=== PATIENT | female | born 1965 | race Caucasian/White ===

== ENCOUNTER 2017-08-10 05:39 | Day surgery (SDC) | payer BC | END 2017-08-10 10:45 | disposition home or self-care (01) | LOC: D.OPS 05:39 | DX: R22.31 Localized swelling, mass and lump, right upper limb (principal); M53.3 Sacrococcygeal disorders, not elsewhere classified; M70.61 Trochanteric bursitis, right hip; M70.62 Trochanteric bursitis, left hip; M25.561 Pain in right knee; M25.562 Pain in left knee; K44.9 Diaphragmatic hernia without obstruction or gangrene; K21.9 Gastro-esophageal reflux disease without esophagitis; Z01.812 Encounter for preprocedural laboratory examination ==

== ENCOUNTER 2017-08-12 07:57 | Emergency (ER) | payer BC | END 2017-08-12 08:39 | disposition home or self-care (01) | LOC: D.ER 07:57 | DX: L76.22 Postprocedural hemorrhage of skin and subcutaneous tissue following other procedure (principal); G89.18 Other acute postprocedural pain; K21.9 Gastro-esophageal reflux disease without esophagitis ==

== ENCOUNTER 2017-09-21 10:43 | Day surgery (SDC) | payer BC ==
[~2017-09-21 10:43] MED LIST: CLARITIN 10 MG10 MG PO; CROMOLYN SOD40 MG/ML NS; DEPAKOTE250 MG PO; DEPAKOTE500 MG PO; HYDROCODONE-APA1 TAB PO; MAXALT MLT10 MG/TAB PO; OCELLA 3 MG-0.1 EACH PO; PRILOSEC20 MG PO; TOPAMAX200 MG PO; WELCHOL625 MG PO; ZANTAC150 MG PO; [UNRECOGNIZED DRUG - OTHER]
[2017-09-21 11:46] LABS: HCG URINE NEGATIVE (NEGATIVE)
[2017-09-21] MEDS ORDERED: ULTRAM50 MG PO (12:06)
[2017-09-21 12:08] VITALS: BP 125/71; BMI 23.0
[2017-09-21 12:26] LABS: HEMOGLOBIN 11.1 g/dL (12-16); MCH 30.1 pg (26.0-34.0); MCHC 31.7 g/dL (31.0-37.0); MCV 94.9 fL (80.0-100.0); MEAN PLATELET VOLUME 10.9 fL (7.4-10.4); RBC 3.69 10x6/uL (4.00-5.40); RDW 14.3 % (11.5-14.5); WBC 9.1 10x3/uL (4.8-10.8)
[2017-09-21] MEDS ORDERED: HYDROCODONE-APA1 TAB PO (14:14)
--- NOTE | 2017-09-21 14:27 | NUR ---
THE PATIENT REQUESTED A SHORT STAY IN RECOVERY SO SHE COULD RETURN TO OUTPATIENT TO EAT
--- NOTE | 2017-09-21 14:33 | NUR ---
DR CARNEY PLACED EDMUND IN HOLDING AREA BEFORE COMING BACK FOR PROCEDURE, CHANDRAKANT.
--- NOTE | 2017-09-21 17:31 | NUR ---
1530 IV DC PER JULIET
--- NOTE | 2017-09-25 14:00 | OP ---
PATIENT NAME: TERESA BOYER MEDICAL RECORD: [id number] :69 LOCATION:D.OPS ADMISSION DATE: SURGEON: MAYE TATE MD DATE OF OPERATION: 09/21/2017 PREOPERATIVE DIAGNOSIS: Recurrent nodule dorsal aspect of the right hand. POSTOPERATIVE DIAGNOSIS: Recurrent nodule dorsal aspect of the right hand. PROCEDURE: Elliptical incision of the subcutaneous nodule including full dermis excision. SURGEON: Maye Tate MD ANESTHESIA: General. INTRAOPERATIVE COMPLICATIONS: None. SUMMARY OF PATHOLOGIC FINDINGS: Unlike the last nodule that was excised, this was actually more likely hypertrophic scar tissue in the dermis itself. For this reason, an elliptical incision was undertaken at this time. OPERATIVE SUMMARY IN DETAIL: After obtaining the appropriate preoperative orthopedic surgery consent as well as anesthetic consultation, evaluation and clearance, the patient was brought to the operating room and placed on the operating table in supine position. After general laryngeal mask was administered, tourniquet was placed about the proximal aspect of the left upper extremity. Right upper extremity was then prepped and draped in routine sterile fashion. The arm was elevated and exsanguinated, tourniquet inflated to 250 mmHg. Very small elliptical incision was made about this 2 x 2 mm nodularity in the dermis. This was excised in its entirety, full thickness wound was irrigated and closed with 4-0 Prolene in a standard interrupted fashion. The area was locally infiltrated with 0.25% Marcaine plain. Sterile dressings were applied. Tourniquet was deflated. The patient was awakened and taken to recovery in stable condition. All final needle and sponge counts were correct. TRANSINT:[id number] Voice Confirmation ID: [id number] DOCUMENT ID: [id number] MAYE TATE MD at 1400 CC: [id number] DICTATION DATE: 09/22/17 1113 INVESTMENT ADVISOR: 09/22/17 1158 [facility] 09/21/[address] [id number]
== END 2017-09-21 16:00 | disposition home or self-care (01) ==
LOC: D.OPS 10:43 → D.PAN 13:00 → D.OPS 14:00 → D.PAN 14:35 → D.OPS 16:00
PROVIDERS: Anesthesiology; Orthopaedic Surgery
DX: R22.31 Localized swelling, mass and lump, right upper limb (principal); K44.9 Diaphragmatic hernia without obstruction or gangrene; K21.9 Gastro-esophageal reflux disease without esophagitis; Z01.812 Encounter for preprocedural laboratory examination; M79.641 Pain in right hand; M25.551 Pain in right hip; M25.552 Pain in left hip; M70.61 Trochanteric bursitis, right hip; M70.62 Trochanteric bursitis, left hip; M53.3 Sacrococcygeal disorders, not elsewhere classified

== ENCOUNTER 2019-09-05 05:30 | Day surgery (SDC) | payer BC ==
[2019-09-04 09:07] LABS: HEMATOCRIT 37.3 % (36.0-48.0); HEMOGLOBIN 11.8 g/dL (12-16); MCH 28.6 pg (26.0-34.0); MCHC 31.6 g/dL (31.0-37.0); MCV 90.5 fL (80.0-100.0); MEAN PLATELET VOLUME 10.1 fL (7.4-10.4); RBC 4.12 10x6/uL (4.00-5.40); RDW 13.8 % (11.5-14.5); WBC 6.5 10x3/uL (4.8-10.8)
[~2019-09-05] VITALS: Ht 160 cm; Wt 55.3 kg
[~2019-09-05 05:30] MED LIST changes: +EMGALITY SQ; +ULTRAM50 MG PO
[2019-09-05] MEDS ORDERED: ZANAFLEX4 MG PO (06:01)
[2019-09-05] MEDS ORDERED: OMEPRAZOLE CAP 20M (06:02)
[2019-09-05] MEDS ORDERED: IBUPROFEN800 MG (06:02)
[2019-09-05] MEDS ORDERED: AMBIEN5 MG PO (06:03)
[2019-09-05 06:15] VITALS: BP 133/90; Ht 160 cm; Wt 55.3 kg
[2019-09-05] MEDS ORDERED: PERCOCET 10-321 EAC1 PO (07:41)
--- NOTE | 2019-09-05 09:27 | NUR ---
DISCHARGED HOME VIA WHEELCHAIR TO PRIVATE VEHICLE WITH FRIEND
--- NOTE | 2019-09-09 10:50 | OP ---
PATIENT NAME: TERESA BOYER MEDICAL RECORD: [id number] :69 LOCATION:D.OPS ADMISSION DATE: SURGEON: MAYE TATE MD DATE OF OPERATION: 09/05/2019 PREOPERATIVE DIAGNOSIS: Right carpal tunnel syndrome, right trigger thumb. POSTOPERATIVE DIAGNOSIS: Right carpal tunnel syndrome, right trigger thumb. PROCEDURES: 1. Right carpal tunnel release. 2. Right trigger thumb release. SURGEON: Maye Tate MD BUILDING SERVICES ENGINEER: HUSSEIN Mari INTRAOPERATIVE COMPLICATIONS: None. SUMMARY OF PATHOLOGIC FINDINGS: The patient had a tight transverse carpal ligament consistent with preoperative diagnosis of carpal tunnel syndrome. Furthermore, the patient had a very tight A1 dora at the thumb base. OPERATIVE SUMMARY IN DETAIL: After obtaining the appropriate preoperative orthopedic surgery consent as well as anesthetic consultation, evaluation, and clearance, the patient was brought to the operating room and placed on the operating table in supine position. After adequate general laryngeal mask airway was administered, tourniquet was placed on the proximal aspect of the right upper extremity. Right upper extremity was then prepped and draped in routine sterile fashion. The arm was elevated and exsanguinated, tourniquet was inflated to 250 mmHg. Attention was first turned to the trigger thumb. Incision was made at the base of trigger thumb, taken down to the level of the A1 dora. The digital nerves were identified and retracted. The A1 dora was incised in its entirety. The patient had a very thick A1 dora. The flexor tendon was then identified and had some attritional changes, but no full thickness tearing. This wound was then irrigated. Attention was turned to the carpal tunnel. Incision was made in line with the fourth metacarpal, taken down to the level of the distal aspect of the transverse carpal ligament. A small incision was made here to identify the median nerve. A [place] elevator was then placed and then the [employer] light knife was utilized to complete the entire transverse ligament incision under direct visualization while protecting the median nerve. Again, both areas were irrigated and closed by HUSSEIN Mari. Prior to letting the tourniquet down, the area was locally infiltrated with 0.25% Marcaine plain. Sterile dressings were applied. Tourniquet was deflated. The patient was awakened and taken to the recovery room in stable condition. All final needle and sponge counts were correct. TRANSINT:[id number] Voice Confirmation ID: [id number] DOCUMENT ID: [id number] OPERATIVE REPORT [id number] TERESA BOYER MD, MAYE OWUSU at 1050 CC: [id number] DICTATION DATE: 09/06/19 1050 [facility] REGISTERED NURSE: 09/06/19 1112 [facility] [place] 09/05/19 [facility] [address] [place] [address]
== END 2019-09-05 09:27 | disposition home or self-care (01) ==
LOC: D.OPS 05:30 → D.PAN 07:30 → D.OPS 07:30
PROVIDERS: Anesthesiology; ATTEND Orthopaedic Surgery
DX: G56.01 Carpal tunnel syndrome, right upper limb (principal); M65.311 Trigger thumb, right thumb

== ENCOUNTER → 2020-07-08 15:00 | Outpatient (CLI) | payer BC ==
[2019-09-05 06:15] VITALS: BMI 21.6
[~2020-07-08 15:00] MED LIST changes: +AMBIEN5 MG PO; +IBUPROFEN800 MG; +OMEPRAZOLE CAP 20M; +PERCOCET 10-321 EAC1 PO; +ZANAFLEX4 MG PO
[2020-07-09 01:15] LABS: BASOPHILS 0.4 % (0-2); EOSINOPHILS 2.8 % (0-7); HEMATOCRIT 36.2 % (36.0-48.0); HEMOGLOBIN 11.4 g/dL (12-16); IMMATURE GRANULOCYTES 0.1 % (0-5); LYMPHOCYTES 33.4 % (15-50); MCH 29.8 pg (26.0-34.0); MCHC 31.5 g/dL (31.0-37.0); MCV 94.5 fL (80.0-100.0); MEAN PLATELET VOLUME 11.7 fL (7.4-10.4); MONOCYTES 8.7 % (2-11); NEUTROPHILS 54.6 % (40-80); PLATELET COUNT 255 10x3/uL (130-400); RBC 3.83 10x6/uL (4.00-5.40); RDW 13.8 % (11.5-14.5); WBC 7.1 10x3/uL (4.8-10.8)
[2020-07-09 01:32] LABS: C-REACTIVE PROTEIN 1.7 mg/dL (0.0-0.9); URIC ACID 2.5 mg/dL (2.6-7.2)
[2020-07-09 02:17] LABS: ERYTHROCYTE SEDIMENTATION RATE 36 mm/hr (0-30)
[2020-07-10 09:12] LABS: ANA REFLEX - DIRECT Negative (Negative)
== END | disposition home or self-care (01) ==
LOC: D.LABREF 15:00
PROVIDERS: ATTEND Clinical Nurse Specialist Family Health
DX: M13.0 Polyarthritis, unspecified (principal)

== ENCOUNTER → 2021-05-13 11:19 | Outpatient (CLI) | payer BC ==
[~2021-05-13 11:19] MED LIST changes: +BOTOX; +HYDROXYZINE HCL10 MG PO; -IBUPROFEN800 MG; +IBUPROFEN800 MG PO; -OMEPRAZOLE CAP 20M; +OMEPRAZOLE CAP 20M PO; +ZOFRAN4 MG PO
== END | disposition home or self-care (01) ==
LOC: D.LAB 11:15 → D.NM 11:30
PROVIDERS: ATTEND Internal Medicine Gastroenterology
DX: R10.13 Epigastric pain (principal); R11.0 Nausea